=== PATIENT | female | born 1980 | race Caucasian/White ===

== ENCOUNTER → 2016-09-07 | Outpatient (CLI) | payer OTHER ==
--- NOTE | 2016-09-08 14:19 | REP ---
Thyroid uptake and scan: History: Hyperthyroidism. Palpable mass. Technique: 328 microcuries of I 123 sodium iodide is ingested and 24 uptake value is acquired along with functional thyroid images. Findings: The 24 hour uptake value is somewhat low at 21.4% (25-35%). Functional images show no cold or warm lesion. Symmetric uptake is seen in the thyroid lobes. A pyramidal lobe shows uptake along the anteromedial side of the left neck. This is a normal variant. Impression: Pyramidal lobe uptake is seen. The 24 uptake value is 21.4% which is somewhat low. Signed by Efraín Jain MD 09/08/2016 04:33 P
== END | disposition home or self-care (01) ==
LOC: M RAD 13:38
PROVIDERS: ATTEND Family Medicine
DX: R22.1 Localized swelling, mass and lump, neck (principal)

== ENCOUNTER 2021-03-16 06:00 | Day surgery (SDC) | payer OTHER ==
[~2021-03-16] VITALS: Ht 167.6 cm; Wt 106.6 kg
[~2021-03-16 06:00] MED LIST: ACETAMINOPHEN 650 MG SUPP PR ONE; LR 1,000 ML IV ONE; QUET1TAB17 PO; QUET50TA4 PO; SERT-141 PO
[2021-03-16 06:47] LABS: HEMATOCRIT 45.8 % (36.0-47.0); HEMOGLOBIN 14.9 g/dl (12.0-15.5); MEAN CORPUSCULAR HEMOGLOBIN 31.3 pg (27.0-33.0); MEAN CORPUSCULAR HGB CONC 32.5 g/dl (32.0-36.5); MEAN CORPUSCULAR VOLUME 96.2 fl (80.0-96.0); PLATELET COUNT, AUTOMATED 298 10^3/uL (150-450); RED BLOOD COUNT 4.76 10^6/uL (4.00-5.40); WHITE BLOOD COUNT 8.9 10^3/uL (4.0-10.0)
[2021-03-16] MEDS ORDERED: LIDOCAINE 2% 100MG/5ML SDV (FOR ANES.) As Ordered ONE (07:12)
[2021-03-16] MEDS ORDERED: dexameTHASONE 4 MG/ML 1ML VIAL (J1100 PER 1MG) As Ordered ONE (07:12)
[2021-03-16] MEDS ORDERED: MIDAZOLAM INJ 2MG/2ML VIAL (J2250 PER 1MG) As Ordered ONE (07:12)
[2021-03-16] MEDS ORDERED: propofoL 200 MG/20 ML VIAL As Ordered ONE ×2 (07:12→09:23)
[2021-03-16] MEDS ORDERED: ONDANSETRON 4MG/2ML VIAL As Ordered ONE (07:12)
[2021-03-16] MEDS ORDERED: ROCURONIUM BROMIDE 50 MG/5 ML VIAL As Ordered ONE ×2 (07:12→08:04)
[2021-03-16] MEDS ORDERED: ACETAMINOPHEN 650 MG SUPP As Ordered ONE (07:13)
[2021-03-16] MEDS ORDERED: fentaNYL 100 MCG/2 ML INJECTION (J3010) As Ordered ONE ×3 (07:13→08:25)
[2021-03-16] MEDS ORDERED: BUPIVACAINE HCL 0.5% 10ML VIAL As Ordered ONE (07:13)
[2021-03-16 07:26] LABS: BLOOD UREA NITROGEN 14 MG/DL (7-18); CALCIUM LEVEL 8.9 MG/DL (8.5-10.1); CARBON DIOXIDE LEVEL 25 MEQ/L (21-32); CHLORIDE LEVEL 108 MEQ/L (98-107); CREATININE FOR GFR 0.71 MG/DL (0.55-1.30); GLOMERULAR FILTRATION RATE > 60.0 (>60); GLUCOSE, FASTING 91 MG/DL (70-100); HCG, SERUM QUANTITATIVE < 1.0 MIU/ML; POTASSIUM SERUM 4.7 MEQ/L (3.5-5.1); SODIUM LEVEL 138 MEQ/L (136-145)
[2021-03-16] MEDS ORDERED: KETOROLAC 60MG 2ML VIAL As Ordered ONE (07:49)
[2021-03-16] MEDS ORDERED: SUGAMMADEX SODIUM 500 MG/5 ML VIAL (BRIDION) As Ordered ONE (07:49)
[2021-03-16] MEDS ORDERED: METOCLOPRAMIDE INJ 10MG/2ML VIAL (J2765 PER 1) As Ordered ONE (09:00)
[2021-03-16] MEDS ORDERED: ONDANSETRON 4MG/2ML VIAL IV PRN (09:50)
[2021-03-16] MEDS ORDERED: PERCOCET 5MG/325MG TAB PO PRN (09:50)
[2021-03-16] MEDS ORDERED: LR 1,000 ML IV SCH (09:50)
[2021-03-16] MEDS ORDERED: fentaNYL 100 MCG/2 ML INJECTION (J3010) IV PRN (09:50)
[2021-03-16] MEDS ORDERED: METOCLOPRAMIDE INJ 10MG/2ML VIAL (J2765 PER 1) IV PRN (09:50)
[2021-03-16 10:37] VITALS: BP 119/68
--- NOTE | 2021-03-16 12:24 | RO ---
OPERATIVE NOTE DATE OF OPERATION: 03/16/2021 PREOPERATIVE DIAGNOSIS: Satisfied parity. POSTOPERATIVE DIAGNOSIS: Satisfied parity. OPERATION PROPOSED: Operative laparoscopy; bilateral salpingectomy; hysteroscopy; D&C, removal of IUCD. OPERATION PERFORMED: Operative laparoscopy; bilateral salpingectomy; removal of IUCD. SURGEON: Dc Mercado MD HEAD SAWYER: Dr. Clement without who we could not complete the procedure, she was required for extraction, retraction and visualization. ANESTHESIA: General plus local anesthetic for intraperitoneal procedures. ESTIMATED BLOOD LOSS: Less than 25 mL. DESCRIPTION OF PROCEDURE: After adequate time out prepped and draped in lithotomy position, Bunn catheter in bladder draining clear urine, sequentials in place, Acetaminophen suppository 1300 mg per rectum. No antibiotics were required. Weighted speculum in the vagina. 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 We had extreme difficulty in antevert and elevating the cervix with the redundant vagina telescoping vagina and lateral alejandro which are imploding. We were eventually able to find the cervix and put single tooth tenaculum on same. Re-prepping and draping, small subumbilical incision was made, Veress needle was applied. 3.8 liters of CO2 to flow rate of 14 to pressure of 15. Direct entry into the abdomen, no evidence of perforation, hemorrhage or bleeding. Massive adhesions of the anterior abdominal wall with peritoneum stretched from the left side to right side obliterating the ability to see anything below that. We were able to find a window between the adhesion bands, put in 3 mm port on the right side, put in 3 mm port on the left side. Again, there were a lot of adhesions. The uterus was adherent to the anterior abdominal wall obliterating the bladder. Uterus was deviated off to the left. The right side was stretched. We could see the ureter; we could see the tube, fimbriated end and the ovary. On the left side we could see the tube and the ovary. The cul-de-sac was relatively free. We then with the Harmonic scalpel removed the right tube right to the cornua and it was taken out and sent to pathology under separate cover. With the Harmonic scalpel we were able to get out the left tube and that was also sent to pathology. With instrument and pad count correct no active bleeding, we decreased the pressure to 4 mm pressure, reviewed the anatomy, no bleeding was noted. The two 5 mm ports were removed and the mainstem port was removed and subcuticular stitches were placed with Marcaine 0.25% total of 3 mL in each port site and Steri-Strip was applied. We then went below and again with difficulty we were able to visualize the cervix. It was again tethered to the posterior rectal area. We were able to identify and remove the IUCD which was sent to pathology. Hysteroscopy was not required. The patient's last period was 2015. With instrument and pad count correct the Bunn catheter was removed. The patient was sent to recovery in good condition. cc: [place] [facility]
== END 2021-03-16 10:40 | disposition home or self-care (01) ==
LOC: M SDC 06:00
PROVIDERS: ATTEND Obstetrics & Gynecology
DX: Z30.2 Encounter for sterilization (principal); Z30.432 Encounter for removal of intrauterine contraceptive device; K66.0 Peritoneal adhesions (postprocedural) (postinfection); F32.9 Major depressive disorder, single episode, unspecified; E66.9 Obesity, unspecified; Z68.32 Body mass index [BMI] 32.0-32.9, adult; F17.210 Nicotine dependence, cigarettes, uncomplicated; Z88.0 Allergy status to penicillin; Z91.040 Latex allergy status; Z79.899 Other long term (current) drug therapy
CPT/HCPCS: 36415; 58301; 58661; 80048; 84702; 85027; 88300; 88302; J1100; J1885; J2250; J2405; J2765; J3010

== ENCOUNTER → 2025-04-09 | Outpatient (CLI) | payer OTHER ==
[~2025-04-09] MED LIST changes: -ACETAMINOPHEN 650 MG SUPP PR ONE; -LR 1,000 ML IV ONE; +PROHANCE 279.3MG/ML 15ML VIAL ONE; +PROHANCE 279.3MG/ML 5ML VIAL ONE
== END ==
LOC: M PLAIMG 11:51
PROVIDERS: ATTEND Registered Nurse
DX: Z12.39 Encounter for other screening for malignant neoplasm of breast (principal); R92.333 Mammographic heterogeneous density, bilateral breasts; Z98.82 Breast implant status; N60.11 Diffuse cystic mastopathy of right breast; N60.12 Diffuse cystic mastopathy of left breast
CPT/HCPCS: A9576; C8908

== ENCOUNTER → 2025-05-06 | Outpatient (REF) | payer OTHER ==
[~2025-05-06] MED LIST changes: -PROHANCE 279.3MG/ML 15ML VIAL ONE; -PROHANCE 279.3MG/ML 5ML VIAL ONE
== END ==
LOC: M LAB REF 11:56
PROVIDERS: ATTEND Physician Assistant
DX: L02.212 Cutaneous abscess of back [any part, except buttock and flank] (principal)